=== PATIENT | male | born 1990 | race Caucasian/White ===

== ENCOUNTER 2022-05-30 22:08 | Emergency (ER) | payer OTHER ==
[2022-05-30] MEDS ORDERED: SODIUM CHLORIDE 0.9% 1,000 ML IV STA (22:36)
[2022-05-30] MEDS ORDERED: IPRATROPIUM-ALBUTEROL 3 ML NEB INHALATION STA (22:36)
[2022-05-30] MEDS ORDERED: AZITHROMYCIN 500 MG in SODIUM CHLORIDE 0.9% 250 ML IVPB STA (22:36)
--- NOTE | 2022-05-30 22:37 | ED ---
SOB HPI - General Chief Complaint: Shortness of Breath Stated Complaint: MIGUEL ANGEL,Congestion Time Seen by Provider: 05/30/22 22:36 Source: patient, RN notes reviewed, old records reviewed Mode of arrival: ambulatory - History of Present Illness Initial Comments: This is a 32-year-old male to the emergency department for evaluation no significant medical history takes no medications. Patient coming in with fever nausea elevated heart rate weakness shortness of breath and some chest pain. No travel history or sick contacts. Patient states is generalized not feeling well. Does have possible exposure to influenza MD Complaint: shortness of breath, cough, chest pain -: hour(s) Severity: moderate Severity scale (1-10): 7 Quality: sharp Consistency: constant Improves With: nothing Worsens With: nothing Context: recent URI, recent illness Associated Symptoms: chest pain Treatments Prior to Arrival: none - Related Data Previous Rx's Medication Instructions Recorded Oseltamivir [Tamiflu] 75 mg PO Q12HR #10 cap 05/31/22 Allergies Allergy/AdvReac Type Severity Reaction Status Date / Time No Known Allergies Allergy Verified 05/30/22 22:16 Review of Systems ROS Statement: Those systems with pertinent positive or pertinent negative responses have been documented in the HPI. ROS Other: All systems not noted in ROS Statement are negative. Past Medical History Past Medical History: Asthma, GERD/Reflux History of Any Multi-Drug Resistant Organisms: None Reported Past Surgical History: No Surgical Hx Reported Past Psychological History: No Psychological Hx Reported Smoking Status: Current every day smoker Past Alcohol Use History: None Reported Past Drug Use History: None Reported General Exam General appearance: alert, in no apparent distress, anxious Head exam: Present: atraumatic, normocephalic, normal inspection Eye exam: Present: normal appearance, PERRL, EOMI. Absent: scleral icterus, conjunctival injection, periorbital swelling ENT exam: Present: normal exam, mucous membranes moist Neck exam: Present: normal inspection. Absent: tenderness, meningismus, lymphadenopathy Respiratory exam: Present: normal lung sounds bilaterally. Absent: respiratory distress, wheezes, rales, rhonchi, stridor Cardiovascular Exam: Present: normal rhythm, tachycardia, normal heart sounds. Absent: systolic murmur, diastolic murmur, rubs, gallop, clicks GI/Abdominal exam: Present: soft, normal bowel sounds. Absent: distended, tenderness, guarding, rebound, rigid Extremities exam: Present: normal inspection, full ROM, normal capillary refill. Absent: tenderness, pedal edema, joint swelling, calf tenderness Back exam: Present: normal inspection Neurological exam: Present: alert, oriented X3, CN II-XII intact Psychiatric exam: Present: normal affect, normal mood Skin exam: Present: warm, dry, intact, normal color. Absent: rash Course Vital Signs 05/30/22 05/30/22 05/30/22 22:14 23:04 23:07 Temperature 100.8 F H Pulse Rate 142 H 120 H 137 H Respiratory 24 18 Rate Blood Pressure 109/71 137/88 O2 Sat by Pulse 95 98 Oximetry 05/30/22 05/30/22 05/31/22 23:08 23:32 00:33 Temperature 100.4 F H Pulse Rate 128 H 130 H Respiratory Rate Blood Pressure O2 Sat by Pulse Oximetry 05/31/22 05/31/22 05/31/22 00:45 00:47 00:52 Temperature 101.2 F H 101.2 F H Pulse Rate 133 H 122 H 142 H Respiratory 22 22 Rate Blood Pressure 137/88 O2 Sat by Pulse 95 95 Oximetry - Reevaluation(s) Reevaluation #1: 05/29/22 Medical record is reviewed Patient symptoms improved here in the ER Patient informed of results and questions answered Medical Decision Making - Medical Decision Making 32 male shortness of breath chest x-rays negative, influenza negative patient can be discharged home. - Lab Data Result diagrams: 05/30/22 22:42 05/30/22 22:42 Lab Results 05/30/22 05/30/22 05/30/22 Range/Units 22:42 22:42 22:42 WBC 13.4 H (3.8-10.6) k/uL RBC 5.43 (4.30-5.90) m/uL Hgb 16.4 (13.0-17.5) gm/dL Hct 44.6 (39.0-53.0) % MCV 82.1 (80.0-100.0) fL MCH 30.3 (25.0-35.0) pg MCHC 36.9 (31.0-37.0) g/dL RDW 11.9 (11.5-15.5) % Plt Count 257 (150-450) k/uL MPV 7.2 Neutrophils % 87 % Lymphocytes % 7 % Monocytes % 5 % Eosinophils % 1 % Basophils % 0 % Neutrophils # 11.7 H (1.3-7.7) k/uL Lymphocytes # 0.9 L (1.0-4.8) k/uL Monocytes # 0.6 (0-1.0) k/uL Eosinophils # 0.1 (0-0.7) k/uL Basophils # 0.1 (0-0.2) k/uL PT 10.1 (9.0-12.0) sec INR 1.0 (<1.2) APTT 24.1 (22.0-30.0) sec Sodium 140 (137-145) mmol/L Potassium 3.7 (3.5-5.1) mmol/L Chloride 107 (98-107) mmol/L Carbon Dioxide 26 (22-30) mmol/L Anion Gap 7 mmol/L BUN 10 (9-20) mg/dL Creatinine 1.08 (0.66-1.25) mg/dL Est GFR (CKD-EPI)AfAm >90 (>60 ml/min/1.73 sqM) Est GFR (CKD-EPI)NonAf 90 (>60 ml/min/1.73 sqM) Glucose 106 H (74-99) mg/dL Calcium 8.9 (8.4-10.2) mg/dL Magnesium 1.9 (1.6-2.3) mg/dL Total Bilirubin 0.6 (0.2-1.3) mg/dL AST 39 (17-59) U/L ALT 43 (4-49) U/L Alkaline Phosphatase 104 (38-126) U/L Troponin I (0.000-0.034) ng/mL NT-Pro-B Natriuret Pep pg/mL Total Protein 8.2 (6.3-8.2) g/dL Albumin 4.8 (3.5-5.0) g/dL Influenza Type A (PCR) (Not Detectd) Influenza Type B (PCR) (Not Detectd) RSV (PCR) (Not Detectd) SARS-CoV-2 (PCR) (Not Detectd) 05/30/22 05/30/22 05/30/22 Range/Units 22:42 22:42 22:42 WBC (3.8-10.6) k/uL RBC (4.30-5.90) m/uL Hgb (13.0-17.5) gm/dL Hct (39.0-53.0) % MCV (80.0-100.0) fL MCH (25.0-35.0) pg MCHC (31.0-37.0) g/dL RDW (11.5-15.5) % Plt Count (150-450) k/uL MPV Neutrophils % % Lymphocytes % % Monocytes % % Eosinophils % % Basophils % % Neutrophils # (1.3-7.7) k/uL Lymphocytes # (1.0-4.8) k/uL Monocytes # (0-1.0) k/uL Eosinophils # (0-0.7) k/uL Basophils # (0-0.2) k/uL PT (9.0-12.0) sec INR (<1.2) APTT (22.0-30.0) sec Sodium (137-145) mmol/L Potassium (3.5-5.1) mmol/L Chloride (98-107) mmol/L Carbon Dioxide (22-30) mmol/L Anion Gap mmol/L BUN (9-20) mg/dL Creatinine (0.66-1.25) mg/dL Est GFR (CKD-EPI)AfAm (>60 ml/min/1.73 sqM) Est GFR (CKD-EPI)NonAf (>60 ml/min/1.73 sqM) Glucose (74-99) mg/dL Calcium (8.4-10.2) mg/dL Magnesium (1.6-2.3) mg/dL Total Bilirubin (0.2-1.3) mg/dL AST (17-59) U/L ALT (4-49) U/L Alkaline Phosphatase (38-126) U/L Troponin I <0.012 (0.000-0.034) ng/mL NT-Pro-B Natriuret Pep 51 pg/mL Total Protein (6.3-8.2) g/dL Albumin (3.5-5.0) g/dL Influenza Type A (PCR) Detected A (Not Detectd) Influenza Type B (PCR) Not Detected (Not Detectd) RSV (PCR) Not Detected (Not Detectd) SARS-CoV-2 (PCR) Not Detected (Not Detectd) - EKG Data -: EKG Interpreted by Me (EKG is tachycardia 123 [place] 112 QRS 90 QTC is 363) - Radiology Data Radiology results: report reviewed (Chest x-rays negative for acute disease), image reviewed Disposition Clinical Impression: Influenza A Disposition: HOME SELF-CARE Condition: Good Instructions (If sedation given, give patient instructions): Influenza (ED) Prescriptions: Oseltamivir [Tamiflu] 75 mg PO Q12HR #10 cap Is patient prescribed a controlled substance at d/c from ED?: No Referrals: None,Stated [Primary Care Provider] - 1-2 days Time of Disposition: 00:00
[2022-05-30 23:13] LABS: Basophils # (A) 0.1 k/uL (0-0.2); Basophils % (A) 0 %; Eosinophils # (A) 0.1 k/uL (0-0.7); Eosinophils % (A) 1 %; HCT 44.6 % (39.0-53.0); HGB 16.4 gm/dL (13.0-17.5); Lymphocytes # (A) 0.9 k/uL (1.0-4.8); Lymphocytes % (A) 7 %; MCH 30.3 pg (25.0-35.0); MCHC 36.9 g/dL (31.0-37.0); MCV 82.1 fL (80.0-100.0); Mean Platelet Volume 7.2; Monocytes # (A) 0.6 k/uL (0-1.0); Monocytes % (A) 5 %; Neutrophils # (A) 11.7 k/uL (1.3-7.7); Neutrophils % (A) 87 %; Platelet Count 257 k/uL (150-450); RBC 5.43 m/uL (4.30-5.90); RDW 11.9 % (11.5-15.5); WBC 13.4 k/uL (3.8-10.6)
[2022-05-30 23:14] VITALS: BP 137/88
[2022-05-30 23:22] LABS: Partial Thromboplastin Time 24.1 sec (22.0-30.0); Prothrombin Time 10.1 sec (9.0-12.0)
[2022-05-30 23:24] LABS: ALT 43 U/L (4-49); AST 39 U/L (17-59); African American GFR (CKD) >90 (>60 ml/min/1.73 sqM); Albumin 4.8 g/dL (3.5-5.0); Alkaline Phosphatase 104 U/L (38-126); Anion Gap 7 mmol/L; Blood Urea Nitrogen 10 mg/dL (9-20); Calcium 8.9 mg/dL (8.4-10.2); Carbon Dioxide 26 mmol/L (22-30); Chloride 107 mmol/L (98-107); Glucose 106 mg/dL (74-99); Magnesium 1.9 mg/dL (1.6-2.3); Non-African American GFR(CKD) 90 (>60 ml/min/1.73 sqM); Potassium 3.7 mmol/L (3.5-5.1); Sodium 140 mmol/L (137-145); Total Bilirubin 0.6 mg/dL (0.2-1.3); Total Protein 8.2 g/dL (6.3-8.2)
--- NOTE | 2022-05-30 23:34 | XR ---
EXAMINATION TYPE: XR chest 1V portable DATE OF EXAM: 05/30/2022 COMPARISON: NONE HISTORY: Short of breath TECHNIQUE: Evaluate FINDINGS: Heart is normal. Lungs are clear. Diaphragm is normal. Bony thorax is intact. There are tray st leads. IMPRESSION: Normal chest.
[2022-05-31] MEDS ORDERED: KETOROLAC 15 MG/ML 1 ML VIAL IVP STA (00:11)
[2022-05-31] MEDS ORDERED: DEXAMETHASONE SOD PHOSPHATE 10 MG/ML 1 ML VIAL IM STA (00:11)
[2022-05-31] MEDS ORDERED: IPRATROPIUM-ALBUTEROL 3 ML NEB INHALATION STA (00:11)
[2022-05-31] MEDS ORDERED: OSELTAMIVIR 75 MG CAP PO STA (00:14)
[2022-05-31] MEDS ORDERED: IBUPROFEN 800 MG TAB PO STA (00:17)
[2022-05-31] MEDS ORDERED: ACETAMINOPHEN TAB 500 MG TAB PO STA (00:17)
[2022-05-31 00:49] VITALS: PULSE 142; RESP 22; TEMP 101.2
== END 2022-05-31 00:42 | disposition home or self-care (01) ==
LOC: EC 22:08
DX: J10.1 Influenza due to other identified influenza virus with other respiratory manifestations (principal); F17.200 Nicotine dependence, unspecified, uncomplicated; J45.909 Unspecified asthma, uncomplicated; Z20.822 Contact with and (suspected) exposure to COVID-19
CPT/HCPCS: 96365 ×2; 99285 ×2; 96375; 96372; 36415; 94640 ×2; 93005; 83880; 80053; 83735; 84484; 85025; 85610; 85730; 87040; 87636; 71045; J1100; J0456; J1885

== ENCOUNTER 2023-03-31 03:56 | Emergency (ER) | payer BC, OTHER ==
[2023-03-31 04:10] VITALS: RESP 18
--- NOTE | 2023-03-31 05:13 | ED ---
Skin/Abscess/FB HPI - General Chief complaint: Skin/Abscess/Foreign Body Stated complaint: Rash Time Seen by Provider: 03/31/23 04:42 Source: patient Mode of arrival: ambulatory Limitations: no limitations - History of Present Illness Initial comments: Frank is a previously healthy 32-year-old male who presents the ER today for evaluation of approximately 2 weeks of rash over his trunk and upper extremities. Patient reports that approximately 2 weeks ago he was doing some yard work outside when he noticed some irritation. She reports that since that time he's had a red pruritic rash that seems worse with heat and improve with cold. Patient has taken one chewable Benadryl on a few occasions with minimal improvement in the itchiness. The rash is isolated to the trunk with no rash on the face and no rash on the lower extremities. No systemic symptoms no fevers chills nausea or vomiting. Patient does note that he was exposed to multiple plants while he was out doing yardwork he also notes that he has continued to wear the same hoodie sweatshirt on a regular basis since that day. Patient does report that he had a telemetry medicine visit and was told he may have a fungal infection and put topical fungal cream which seemed to burn but did not improve the symptoms. Asians significant other are adamant there is been no change in body soaps, body lotions, laundry detergent, fabric softener. - Related Data Previous Rx's Medication Instructions Recorded Oseltamivir [Tamiflu] 75 mg PO Q12HR #10 cap 05/31/22 hydrOXYzine HCL [Atarax] 25 mg PO QID PRN #30 tab 03/31/23 predniSONE [Deltasone] 40 mg PO DAILY 5 Days #10 tab 03/31/23 Allergies Allergy/AdvReac Type Severity Reaction Status Date / Time No Known Allergies Allergy Verified 03/31/23 04:06 Review of Systems ROS Statement: Those systems with pertinent positive or pertinent negative responses have been documented in the HPI. ROS Other: All systems not noted in ROS Statement are negative. Past Medical History Past Medical History: Asthma, GERD/Reflux History of Any Multi-Drug Resistant Organisms: None Reported Past Surgical History: No Surgical Hx Reported Past Psychological History: No Psychological Hx Reported Smoking Status: Current every day smoker Past Alcohol Use History: Rare Past Drug Use History: None Reported General Exam - General Exam Comments Initial Comments: Physical Exam GENERAL: Patient is well-developed and well-nourished. Patient is nontoxic and well-hydrated and is in no distress. HENT: Normocephalic, Atraumatic. EYES: PERRL, EOMI PULMONARY: Unlabored respirations. CARDIOVASCULAR: RRR Warm and well perfused extremities ABDOMEN: Non-distended SKIN: There is a erythematous pruritic rash over the trunk with areas of excoriation. No vesicles. No hives. : Deferred NEUROLOGIC: Alert and oriented Normal speech Normal gait MUSCULOSKELETAL: Moving all extremities with no apparent injury PSYCHIATRIC: No SI/HI Limitations: no limitations Course Vital Signs 03/31/23 03/31/23 04:04 05:21 Temperature 97.7 F 98.0 F Pulse Rate 90 75 Respiratory 18 18 Rate Blood Pressure 145/93 135/78 O2 Sat by Pulse 97 99 Oximetry Medical Decision Making - Medical Decision Making Was pt. sent in by a medical professional or institution (, PA, ADMISSIONS MANAGER, urgent care, hospital, or [facility]...) When possible be specific @ -No Did you speak to anyone other than the patient for history (EMS, parent, family, police, friend...)? What history was obtained from this source @ -No Did you review nursing and triage notes (agree or disagree)? Why? @ -I reviewed and agree with nursing and triage notes Were old charts reviewed (outside hosp., previous admission, EMS record, old EKG, old radiological studies, urgent care reports/EKG's, [facility] records)? Report findings @ -No old charts were reviewed Differential Diagnosis (chest pain, altered mental status, abdominal pain women, abdominal pain men, vaginal bleeding, weakness, fever, dyspnea, syncope, headache, dizziness, GI bleed, back pain, seizure, CVA, palpatations, mental health, musculoskeletal)? @ -not applicable EKG interpreted by me (3pts min.). @ -As above X-rays interpreted by me (1pt min.). @ -None done CT interpreted by me (1pt min.). @ -None done U/S interpreted by me (1pt. min.). @ -None done What testing was considered but not performed or refused? (CT, X-rays, U/S, labs)? Why? @ -None What meds were considered but not given or refused? Why? @ -None Did you discuss the management of the patient with other professionals (professionals i.e. , PA, ADMISSIONS MANAGER, lab, RT, psych nurse, social media campaign manager, petroleum inspector supervisor, teacher, correctional probation officer, outsole caser)? Give summary @ -No Was smoking cessation discussed for >3mins.? @ -No Was critical care preformed (if so, how long)? @ -No Were there social determinants of health that impacted care today? How? ( Homelessness, low income, unemployed, alcoholism, drug addiction, transportation, low edu. Level, literacy, decrease access to med. care, fci, rehab)? @ -No Was there de-escalation of care discussed even if they declined (Discuss DNR or withdrawal of care, Hospice)? DNR status @ -No What co-morbidities impacted this encounter? (DM, HTN, Smoking, COPD, CAD, Cancer, CVA, ARF, Chemo, Hep., AIDS, mental health diagnosis, sleep apnea, morbid obesity)? @ -None Was patient admitted / discharged? Hospital course, mention meds given and route, prescriptions, significant lab abnormalities, going to OR and other pertinent info. @ -Discharge Patient was seen and evaluated history was obtained from patient, history of physical exam are consistent with a contact dermatitis given that this rash is only in the distribution of his sweatshirt. Discussed the possibility of exposure to poison oak or poison blessing and the need to remove these oils from his sweatshirt. Patient expressed understanding they will wash his sweatshirt with differential showed. Patient will take steroids for the next 5 days. Atarax as needed for itching. Patient was advised he needs follow-up with his primary care provider early next week for reevaluation as sometimes poison oak or poison blessing requires longer term steroid use. Undiagnosed new problem with uncertain prognosis? @ -No Drug Therapy requiring intensive monitoring for toxicity (Heparin, Nitro, Insulin, Cardizem)? @ -No Were any procedures done? @ -No Diagnosis/symptom? @ -Contact dermatitis Acute, or Chronic, or Acute on Chronic? @ -Acute Uncomplicated (without systemic symptoms) or Complicated (systemic symptoms)? @ -Complicated Side effects of treatment? @ -No Exacerbation, Progression, or Severe Exacerbation? @ -No Poses a threat to life or bodily function? How? (Chest pain, [place], [place], pneumonia, PE, COPD, DKA, ARF, appy, cholecystitis, CVA, Diverticulitis, Homicidal, Suicidal, threat to staff... and all critical care pts) @ -No Disposition Clinical Impression: Contact dermatitis Disposition: HOME SELF-CARE Condition: Stable Instructions (If sedation given, give patient instructions): Contact Dermatitis (DC) Prescriptions: hydrOXYzine HCL [Atarax] 25 mg PO QID PRN #30 tab PRN Reason: Itching predniSONE [Deltasone] 40 mg PO DAILY 5 Days #10 tab Is patient prescribed a controlled substance at d/c from ED?: No Referrals: Oswald Mendoza DO [Primary Care Provider] - 1-2 days
[2023-03-31 05:35] VITALS: BP 135/78; PULSE 75; TEMP 98
== END 2023-03-31 05:35 | disposition home or self-care (01) ==
LOC: EC 03:56
DX: L25.9 Unspecified contact dermatitis, unspecified cause (principal); J45.909 Unspecified asthma, uncomplicated; F17.200 Nicotine dependence, unspecified, uncomplicated
CPT/HCPCS: 99282

== ENCOUNTER 2023-05-26 17:02 | Emergency (ER) | payer BC, OTHER ==
--- NOTE | 2023-05-26 17:04 | ED ---
General Adult HPI - General Stated complaint: Rash all Over Body Time Seen by Provider: 05/26/23 17:03 Source: patient, RN notes reviewed Mode of arrival: ambulatory Limitations: no limitations - History of Present Illness Initial comments: 33-year-old male presents emergency department for chief complaint of rash on his torso. He states that this is been present for around one week. He does report that this happened to him about 1 month ago. He was given steroids and "a medication similar to Benadryl." He states that this resolved his symptoms at the time but this is since come back. He states the rash is the same as that time. Denies fever, chills. Denies new soaps, detergents. He denies any changes since the last time he had this rash. - Related Data Previous Rx's Medication Instructions Recorded Oseltamivir [Tamiflu] 75 mg PO Q12HR #10 cap 05/31/22 hydrOXYzine HCL [Atarax] 25 mg PO QID PRN #30 tab 03/31/23 predniSONE [Deltasone] 40 mg PO DAILY 5 Days #10 tab 03/31/23 Petrolatum, White [Aquaphor] 1 applic TOPICAL BID #85 gm 05/26/23 hydrOXYzine HCL [Atarax] 25 mg PO TID PRN #15 tab 05/26/23 predniSONE [Deltasone] 20 mg PO BID #10 tab 05/26/23 Allergies Allergy/AdvReac Type Severity Reaction Status Date / Time No Known Allergies Allergy Verified 05/26/23 17:08 Review of Systems ROS Statement: Those systems with pertinent positive or pertinent negative responses have been documented in the HPI. ROS Other: All systems not noted in ROS Statement are negative. Past Medical History Past Medical History: Asthma, GERD/Reflux History of Any Multi-Drug Resistant Organisms: None Reported Past Surgical History: No Surgical Hx Reported Past Psychological History: No Psychological Hx Reported Smoking Status: Current every day smoker Past Alcohol Use History: Rare Past Drug Use History: None Reported General Exam - General Exam Comments Initial Comments: Visual Physical Exam Vital signs reviewed General: Well-appearing, nontoxic, no acute distress. Head: Normocephalic, atraumatic Eyes: PERRLA, EOMI ENT: Airway patent Chest: Nonlabored breathing Skin: No visual rash, normal skin tone Neuro: Alert and oriented 3 Musculoskeletal: No gross abnormalities Limitations: no limitations General appearance: alert, in no apparent distress Head exam: Present: atraumatic, normocephalic, normal inspection Eye exam: Present: normal appearance, PERRL, EOMI. Absent: scleral icterus, conjunctival injection, periorbital swelling ENT exam: Present: normal exam, mucous membranes moist Neck exam: Present: normal inspection. Absent: tenderness, meningismus, lymphadenopathy Respiratory exam: Present: normal lung sounds bilaterally. Absent: respiratory distress, wheezes, rales, rhonchi, stridor Cardiovascular Exam: Present: regular rate, normal rhythm, normal heart sounds. Absent: systolic murmur, diastolic murmur, rubs, gallop, clicks Extremities exam: Present: normal inspection, full ROM, normal capillary refill. Absent: tenderness, pedal edema, joint swelling, calf tenderness Back exam: Present: normal inspection Neurological exam: Present: alert, oriented X3 Psychiatric exam: Present: normal affect, normal mood Skin exam: Present: warm, dry, intact, rash (Erythematous confluent papules throughout the patient's torso, and antecubital folds). Absent: normal color Course Vital Signs 05/26/23 17:06 Temperature 98.1 F Pulse Rate 108 H Respiratory 18 Rate Blood Pressure 154/98 O2 Sat by Pulse 98 Oximetry Medical Decision Making - Medical Decision Making Quick note performed by Elaine Cano PA-C Was pt. sent in by a medical professional or institution (ARTHUR Kelley, WOOD WEB WEAVING MACHINE OPERATOR, urgent care, hospital, or detention...) When possible be specific @ -No Did you speak to anyone other than the patient for history (EMS, parent, family, police, friend...)? What history was obtained from this source @ -No Did you review nursing and triage notes (agree or disagree)? Why? @ -I reviewed and agree with nursing and triage notes Were old charts reviewed (outside hosp., previous admission, EMS record, old EKG, old radiological studies, urgent care reports/EKG's, detention records)? Report findings @ -No old charts were reviewed Differential Diagnosis (chest pain, altered mental status, abdominal pain women, abdominal pain men, vaginal bleeding, weakness, fever, dyspnea, syncope, headache, dizziness, GI bleed, back pain, seizure, CVA, palpatations, mental health, musculoskeletal)? @ -Atopic dermatitis, contact dermatitis, scabies, tinnitus, this list is not all-inclusive EKG interpreted by me (3pts min.). @ -none X-rays interpreted by me (1pt min.). @ -None done CT interpreted by me (1pt min.). @ -None done U/S interpreted by me (1pt. min.). @ -None done What testing was considered but not performed or refused? (CT, X-rays, U/S, labs)? Why? @ -None What meds were considered but not given or refused? Why? @ -None Did you discuss the management of the patient with other professionals (professionals i.e. Dr., PA, WOOD WEB WEAVING MACHINE OPERATOR, lab, RT, psych nurse, social professionals, criminal profiler, teacher, vice squad police officer, case managers)? Give summary @ -No Was smoking cessation discussed for >3mins.? @ -No Was critical care preformed (if so, how long)? @ -No Were there social determinants of health that impacted care today? How? (Homelessness, low income, unemployed, alcoholism, drug addiction, transportation, low edu. Level, literacy, decrease access to med. care, longterm, rehab)? @ -No Was there de-escalation of care discussed even if they declined (Discuss DNR or withdrawal of care, Hospice)? DNR status @ -No What co-morbidities impacted this encounter? (DM, HTN, Smoking, COPD, CAD, Cancer, CVA, ARF, Chemo, Hep., AIDS, mental health diagnosis, sleep apnea, morbid obesity)? @ -None Was patient admitted / discharged? Hospital course, mention meds given and route, prescriptions, significant lab abnormalities, going to OR and other pertinent info. @ -Discharged. Patient presented to the emergency department for chief complaint of rash 1 week. He states it is on his torso and he feels that it is worse in the areas of his body that he sweats more frequently. Erythematous, confluent papular rash present on patient's torso and antecubital folds. He is not followed with dermatology for this or his primary care provider. Patient will be started on a short course of steroids and hydroxyzine. Advised patient to utilize topical emollients in these areas. Advised patient to follow up with his primary care provider in dermatology. Patient understands agreeable with discharge plan. Patient stable at discharge. Case discussed with Dr. Watts Undiagnosed new problem with uncertain prognosis? @ -No Drug Therapy requiring intensive monitoring for toxicity (Heparin, Nitro, Insulin, Cardizem)? @ -No Were any procedures done? @ -No Diagnosis/symptom? @ -dermatitis Acute, or Chronic, or Acute on Chronic? @ -acute Uncomplicated (without systemic symptoms) or Complicated (systemic symptoms)? @ -uncomplicated Side effects of treatment? @ -No Exacerbation, Progression, or Severe Exacerbation? @ -No Poses a threat to life or bodily function? How? (Chest pain, [place], [place], pneumonia, PE, COPD, DKA, ARF, appy, cholecystitis, CVA, Diverticulitis, Homicidal, Suicidal, threat to staff... and all critical care pts) @ -No Disposition Clinical Impression: Eczema Disposition: HOME SELF-CARE Condition: Stable Instructions (If sedation given, give patient instructions): Eczema (ED) Additional Instructions: Please follow up with your primary care provider. Return to the emergency depar tment for new or worsening symptoms. Prescriptions: Petrolatum, White [Aquaphor] 1 applic TOPICAL BID #85 gm hydrOXYzine HCL [Atarax] 25 mg PO TID PRN #15 tab PRN Reason: Itching predniSONE [Deltasone] 20 mg PO BID #10 tab Is patient prescribed a controlled substance at d/c from ED?: No Referrals: Oswald Mendoza DO [Primary Care Provider] - 1-2 days
[2023-05-26 17:21] VITALS: BP 154/98; PULSE 108; RESP 18; TEMP 98.1
== END 2023-05-26 18:25 | disposition home or self-care (01) ==
LOC: EC 17:02
DX: L30.9 Dermatitis, unspecified (principal); J45.909 Unspecified asthma, uncomplicated; F17.200 Nicotine dependence, unspecified, uncomplicated
CPT/HCPCS: 99282

== ENCOUNTER 2024-10-09 12:41 | Emergency (ER) | payer OTHER ==
--- NOTE | 2024-10-09 13:17 | ED ---
Lower Extremity Injury HPI - General Chief Complaint: Extremity Injury, Lower Stated Complaint: [facility] Time Seen by Provider: 10/09/24 13:17 Source: patient, RN notes reviewed Mode of arrival: ambulatory Limitations: no limitations - History of Present Illness Initial Comments: 34-year-old male presented to ER for evaluation of left knee injury. 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 He states his foot slipped in between the bar that holds the vehicle and the car's bumper. He states he hit his left knee on the car's bumper. He states since injury he has been having pain to the anterior and lateral aspect of his left knee. He has been able to ambulate but states he is "hobbling". He states his anterior tibia feels numb. He denies any paresthesias to the left lower extremity. He has taken [id number] ibuprofen for pain control at home. Patient also reports his knee feels like it is "popping". He denies any previous injuries to this knee. Patient denies any other injuries or complaints. - Related Data Previous Rx's Medication Instructions Recorded Oseltamivir [Tamiflu] 75 mg PO Q12HR #10 cap 05/31/22 hydrOXYzine HCL [Atarax] 25 mg PO QID PRN #30 tab 03/31/23 predniSONE [Deltasone] 40 mg PO DAILY 5 Days #10 tab 03/31/23 Petrolatum, White [Aquaphor] 1 applic TOPICAL BID #85 gm 05/26/23 hydrOXYzine HCL [Atarax] 25 mg PO TID PRN #15 tab 05/26/23 predniSONE [Deltasone] 20 mg PO BID #10 tab 05/26/23 Allergies Allergy/AdvReac Type Severity Reaction Status Date / Time No Known Allergies Allergy Verified 10/09/24 12:55 Review of Systems ROS Statement: Those systems with pertinent positive or pertinent negative responses have been documented in the HPI. ROS Other: All systems not noted in ROS Statement are negative. Past Medical History Past Medical History: Asthma, GERD/Reflux History of Any Multi-Drug Resistant Organisms: None Reported Past Surgical History: No Surgical Hx Reported Past Psychological History: No Psychological Hx Reported Smoking Status: Current every day smoker Past Alcohol Use History: Rare Past Drug Use History: None Reported General Exam Limitations: no limitations General appearance: alert, in no apparent distress Respiratory exam: Present: normal lung sounds bilaterally. Absent: respiratory distress, wheezes, rales, rhonchi, stridor Cardiovascular Exam: Present: regular rate, normal rhythm, normal heart sounds. Absent: systolic murmur, diastolic murmur, rubs, gallop, clicks Extremities exam: Present: full ROM (Extensor mechanism intact), tenderness (Left lateral knee. There is minimal edema noted to this area. Healing contusion overlying), normal capillary refill (2+ left DP pulse) Neurological exam: Present: alert, oriented X3, CN II-XII intact Skin exam: Present: warm, dry, intact, normal color. Absent: rash Course Vital Signs 10/09/24 12:53 Temperature 98.1 F Pulse Rate 74 Respiratory 17 Rate Blood Pressure 131/86 O2 Sat by Pulse 98 Oximetry Medical Decision Making - Medical Decision Making Was pt. sent in by a medical professional or institution (, PA, [employer], urgent care, hospital, or shelter...) When possible be specific @ -[No] Did you speak to anyone other than the patient for history (EMS, parent, family, police, friend...)? What history was obtained from this source @ -[No] Did you review nursing and triage notes (agree or disagree)? Why? @ -[I reviewed and agree with nursing and triage notes] Were old charts reviewed (outside hosp., previous admission, EMS record, old EKG, old radiological studies, urgent care reports/EKG's, shelter records)? Report findings @ -[No old charts were reviewed] Differential Diagnosis (chest pain, altered mental status, abdominal pain women, abdominal pain men, vaginal bleeding, weakness, fever, dyspnea, syncope, headache, dizziness, GI bleed, back pain, seizure, CVA, palpatations, mental health, musculoskeletal)? @ -[Differential Musculoskeletal: Muscular strain, contusion, ligament sprain, fracture, arthritis, septic arthritis, bursitis, cellulitis, muscle spasm, nerve compression, DVT, arterial occlusion, herpes zoster, electrolyte abnormality, tumor.... This is not meant to be in all inclusive list EKG interpreted by me (3pts min.). @ -None done X-rays interpreted by me (1pt min.). @ -[None done] CT interpreted by me (1pt min.). @ -[None done] U/S interpreted by me (1pt. min.). @ -[None done] What testing was considered but not performed or refused? (CT, X-rays, U/S, labs)? Why? @ -[None] What meds were considered but not given or refused? Why? @ -[None] Did you discuss the management of the patient with other professionals (professionals i.e. , PA, [employer], lab, RT, psych nurse, social insurance administrator, roof promenade tile setter, teacher, aoc director combat operations officer, therapeutic case manager)? Give summary @ -[No] Was smoking cessation discussed for >3mins.? @ -[No] Was critical care preformed (if so, how long)? @ -[No] Were there social determinants of health that impacted care today? How? (Homelessness, low income, unemployed, alcoholism, drug addiction, transportation, low edu. Level, literacy, decrease access to med. care, senior care, rehab)? @ -[No] Was there de-escalation of care discussed even if they declined (Discuss DNR or withdrawal of care, Hospice)? DNR status @ -[No] What co-morbidities impacted this encounter? (DM, HTN, Smoking, COPD, CAD, Cancer, CVA, ARF, Chemo, Hep., AIDS, mental health diagnosis, sleep apnea, morbid obesity)? @ -[None] Was patient admitted / discharged? Hospital course, mention meds given and route, prescriptions, significant lab abnormalities, going to OR and other pertinent info. @ -[hospital course] Undiagnosed new problem with uncertain prognosis? @ -[No] Drug Therapy requiring intensive monitoring for toxicity (Heparin, Nitro, Insulin, Cardizem)? @ -[No] Were any procedures done? @ -[No] Diagnosis/symptom? @ -[default] Acute, or Chronic, or Acute on Chronic? @ -[default] Uncomplicated (without systemic symptoms) or Complicated (systemic symptoms)? @ -[default] Side effects of treatment? @ -[No] Exacerbation, Progression, or Severe Exacerbation? @ -[No] Poses a threat to life or bodily function? How? (Chest pain, [place], [place], pneumonia, PE, COPD, DKA, ARF, appy, cholecystitis, CVA, Diverticulitis, Homicidal, Suicidal, threat to staff... and all critical care pts) @ -[No] Disposition Clinical Impression: Knee sprain Disposition: HOME SELF-CARE Condition: Stable Instructions (If sedation given, give patient instructions): Knee Sprain (ED) Additional Instructions: I recommend rest, ice, elevation, compression. You may take [id number] ibuprofen and Tylenol for pain control. Follow-up with orthopedics for work clearance. Return to the ER for any new or worsening concerns Is patient prescribed a controlled substance at d/c from ED?: No Referrals: Oswald Mendoza DO [Primary Care Provider] - 1-2 days Tigre Bran MD [STAFF PHYSICIAN] - 1-2 days Time of Disposition: 14:03
--- NOTE | 2024-10-09 13:40 | XR ---
EXAMINATION TYPE: XR knee complete LT DATE OF EXAM: 10/09/2024 1:35 PM INDICATION: Patient age:Male; 34 years old; Reason for study: pain ; [facility]. pain COMPARISON: None. TECHNIQUE: The Left knee(s) was examined in Frontal, lateral and oblique projections. FINDINGS: No evidence of any acute osseous pathology, soft tissue swelling, or joint effusion is no farhat. Incidental fabella. IMPRESSION: No acute osseous pathology. [facility], , 10/09/2024 1:37 PM
[2024-10-09 14:45] VITALS: BP 126/80; PULSE 68; RESP 20; TEMP 98
== END 2024-10-09 14:34 | disposition home or self-care (01) ==
LOC: EC 12:41
DX: S83.92XA Sprain of unspecified site of left knee, initial encounter (principal); F17.200 Nicotine dependence, unspecified, uncomplicated; Y92.810 Car as the place of occurrence of the external cause
CPT/HCPCS: 99283